=== PATIENT | female | born 1955 | race African-American/Black ===

== ENCOUNTER 2018-01-01 07:10 | Emergency (ER) | payer MEDICAID ==
[~2018-01-01] VITALS: Ht 157.5 cm; Wt 117.0 kg
[~2018-01-01 07:10] MED LIST: BENA40TA9 PO; HYDR12.54 PO; LORA10TA7 PO; METFORMIN PO; SIMV20TA6 PO
[2018-01-01] MEDS ORDERED: KETOROLAC 30MG/ML VIAL IV ONE (08:45)
[2018-01-01] MEDS ORDERED: TRAMADOL 50MG TABLET PO ONE (12:15)
[2018-01-01 13:30] VITALS: BP 122/80
== END 2018-01-01 13:54 | disposition home or self-care (01) ==
LOC: ER 07:53
DX: M10.9 Gout, unspecified (principal); M25.571 Pain in right ankle and joints of right foot; E11.9 Type 2 diabetes mellitus without complications; I10 Essential (primary) hypertension; F17.210 Nicotine dependence, cigarettes, uncomplicated; Z79.84 Long term (current) use of oral hypoglycemic drugs
CPT/HCPCS: 73610; 73630; 82962; 96374; 99285; J1885; J7030; Z7610

== ENCOUNTER 2018-07-16 00:58 | Inpatient (IN) | payer MEDICAID ==
[2018-07-16] VITALS (9 sets, daily range): BP systolic 92–145; BP diastolic 48–79
[~2018-07-16] VITALS: Ht 167.6 cm; Wt 109.8 kg
[2018-07-16] MEDS ORDERED: SODIUM CHLORIDE 0.9% 1,000 ML IV ONE (01:08)
[2018-07-16] MEDS ORDERED: MORPHINE SULFATE 4 MG/ML CPJ (NOT FOR IM USE) IV ONE (01:15)
[2018-07-16 01:43] LABS: BASOPHILS % 0.9 % (0.0-2.0); EOSINOPHILS % 1.2 % (0.0-5.0); HEMATOCRIT. 44.8 % (36.0-48.0); HEMOGLOBIN. 14.8 g/dL (12.0-16.0); LYMPHOCYTES % 43.9 % (20.0-50.0); MEAN CORPUSCULAR HEMOGLOBIN 32.6 pg (28.0-32.0); MEAN CORPUSCULAR VOLUME 98.8 fL (81.0-99.0); MONOCYTES % 5.7 % (2.0-8.0); NEUTROPHILS % 48.3 % (40.0-76.0); PLATELET 197 x1000/uL (130-400); RED BLOOD CELL COUNT 4.54 mill/uL (4.2-5.4); RED CELL DISTRIBUTION WIDTH 14.2 % (11.6-14.6)
[2018-07-16 01:48] LABS: CHLORIDE 103 mEq/L (98-107)
[2018-07-16] MEDS ORDERED: DILTIAZEM HCL 5MG/ML 5ML VIAL IV SCH (02:45)
[2018-07-16 03:36] LABS: CLARITY URINE CLEAR (CLEAR); COLOR URINE YELLOW (YELLOW); KETONES URINE NEGATIVE (NEGATIVE); LEUKOCYTE ESTERASE URINE NEGATIVE (NEGATIVE); NITRITE URINE NEGATIVE (NEGATIVE); OCCULT BLOOD URINE NEGATIVE (NEGATIVE); PROTEIN URINE NEGATIVE (NEGATIVE); UROBILINOGEN URINE 0.2 E.U./dL (0.2-1.0)
[2018-07-16] MEDS ORDERED: IOHEXOL-350 100 ML BOTTLE ONE (03:52)
[2018-07-16] MEDS ORDERED: CLONIDINE 0.1MG TABLET PO PRN (08:30)
[2018-07-16] MEDS ORDERED: ONDANSETRON HCL 4MG/2ML INJ IV PRN (08:30)
[2018-07-16] MEDS ORDERED: DOCUSATE SODIUM 100MG CAPSULE PO PRN (08:30)
[2018-07-16] MEDS ORDERED: ACETAMINOPHEN 325MG TABLET PO PRN (08:30)
[2018-07-16] MEDS ORDERED: MAGNESIUM/ALUMINUM HYDROXIDE/SIMETHICONE 30ML UDC PO PRN (08:30)
[2018-07-16] MEDS ORDERED: HYDROCODONE/ACETAMINOPHEN 5/325MG TABLET PO PRN (08:30)
[2018-07-16] MEDS ORDERED: GUAIFENESIN 200MG/10ML SUGAR FREE UDC PO PRN (08:30)
[2018-07-16] MEDS ORDERED: IPRATROPIUM/ALBUTEROL 0.5-3(2.5)MG/3ML NEB INH PRN (08:30)
[2018-07-16] MEDS: ENOXAPARIN 40MG/0.4ML SYR SUBCUT SCH ×2 (08:44→21:50)
[2018-07-16 08:50] LABS: PHOSPHORUS 4.2 mg/dL (2.5-4.9)
[2018-07-16] MEDS ORDERED: DEXTROSE 50% WATER 50ML SYRINGE IV PRN (09:45)
[2018-07-16] MEDS: INSULIN LISPRO 100 UNITS/ML SUBCUT SCH ×3 (11:40→21:00)
[2018-07-16] MEDS: BLOOD SUGAR DIAGNOSTIC STRIP TEST SCH ×3 (11:40→21:45)
[2018-07-16] MEDS: DILTIAZEM HCL 30MG TABLET PO SCH ×2 (12:47→17:02)
[2018-07-16 15:37] LABS: CREATINE KINASE MB FRACTION 4.6 ng/mL (0.5-3.6)
[2018-07-16] MEDS ORDERED: METF-815 PO (16:56)
[2018-07-16 23:32] LABS: CREATINE KINASE MB FRACTION 3.8 ng/mL (0.5-3.6)
[2018-07-17] VITALS: BP 116/57
[2018-07-17] MEDS: DILTIAZEM HCL 30MG TABLET PO SCH ×2 (00:44→06:31)
[2018-07-17 02:00] VITALS: BP 137/76
[2018-07-17 04:00] VITALS: BP 120/58
[2018-07-17 06:00] VITALS: BP 126/71
[2018-07-17] MEDS: BLOOD SUGAR DIAGNOSTIC STRIP TEST SCH (06:50)
[2018-07-17] MEDS: INSULIN LISPRO 100 UNITS/ML SUBCUT SCH (07:20)
[2018-07-17 08:23] LABS: BASOPHILS % 1.2 % (0.0-2.0); EOSINOPHILS % 1.4 % (0.0-5.0); HEMATOCRIT. 47.9 % (36.0-48.0); LYMPHOCYTES % 38.7 % (20.0-50.0); MEAN CORPUSCULAR HEMOGLOBIN 32.4 pg (28.0-32.0); MEAN CORPUSCULAR VOLUME 97.1 fL (81.0-99.0); MEAN PLATELET VOLUME 9.3 fl (7.4-10.4); MONOCYTES % 5.9 % (2.0-8.0); NEUTROPHILS % 52.8 % (40.0-76.0); PLATELET 210 x1000/uL (130-400); RED BLOOD CELL COUNT 4.93 mill/uL (4.2-5.4); RED CELL DISTRIBUTION WIDTH 13.9 % (11.6-14.6)
[2018-07-17 09:11] LABS: CHLORIDE 104 mEq/L (98-107)
[2018-07-17 09:18] LABS: LDL CHOLESTEROL 155 mg/dL (5-100)
[2018-07-17 09:19] LABS: HDL CHOLESTEROL 42 mg/dL (40-59)
[2018-07-17] MEDS: ENOXAPARIN 40MG/0.4ML SYR SUBCUT SCH (09:37)
[2018-07-17] MEDS ORDERED: ENOXAPARIN 30MG/0.3ML SYR SUBCUT SCH (21:00)
== END 2018-07-17 10:10 | disposition left against medical advice (07) | DRG 201 ==
LOC: EDUNIT# 00:58 → ER 00:58 → 3WST 05:01 → EDBEDREQ 05:03 → EDBEDREQTM 05:03 → ENRESERV 07:10
PROVIDERS: ADMIT Internal Medicine; ATTEND Internal Medicine
DX: I48.91 Unspecified atrial fibrillation (principal); M62.82 Rhabdomyolysis; I24.9 Acute ischemic heart disease, unspecified; E66.01 Morbid (severe) obesity due to excess calories; E83.42 Hypomagnesemia; E11.9 Type 2 diabetes mellitus without complications; F12.90 Cannabis use, unspecified, uncomplicated; I10 Essential (primary) hypertension; I25.10 Atherosclerotic heart disease of native coronary artery without angina pectoris; J44.9 Chronic obstructive pulmonary disease, unspecified; Z87.891 Personal history of nicotine dependence; Z79.4 Long term (current) use of insulin; Z68.39 Body mass index [BMI] 39.0-39.9, adult; M94.0 Chondrocostal junction syndrome [Tietze]
CPT/HCPCS: 36415; 71045; 71275; 80061; 82550; 82553; 82962; 83036; 83735; 83880; 84100; 84443; 84484; 85379; 93005; 93306; 93970; 97162; 99291; J1650; J1815; J2270; J3490; J7030; J7040; Q9967